=== PATIENT | male | born 1945 | race Caucasian/White ===

== ENCOUNTER 2017-11-10 19:12 | Emergency (ER) | payer MEDICARE, SELFPAY ==
[2017-11-10 19:12] VITALS: BP 167/121; PULSE 130; RESP 18; TEMP 36.3; O2SAT 95; BMI 25.9
[2017-11-10 20:48] LABS: Absolute Lymphocyte Count 0.77 X10^3/ul (0.83-4.51); Absolute Neutrophil Count 13.7 X10^3/uL (2.0-7.7); Basophil# 0.03 X10^3/uL; Basophil% 0.2 % (0-1); Hematocrit 49.1 % (40-54); Hemoglobin 16.8 g/dl (13.0-16.5); Lymphocyte # 0.77 X10^3/ul (4.0); Lymphocyte % 4.9 % (19-41); Mean Corp Hgb Conc 34.2 g/gl (32-36); Mean Corpuscular Hgb 30.3 pg (27.0-32.0); Mean Corpuscular Volume 88.5 fL (80-94); Mean Platelet Vol. 10.7 fl (6.2-12.0); Monocyte# 1.14 X10^3/uL; Monocyte% 7.3 % (0-10); Neutrophil # 13.67 X10^3/uL (2.7-7.7); Neutrophil % 87.4 % (47-70); POSITIVE COUNT NO; POSITIVE DIFFERENTIAL NO; POSITIVE MORPHOLOGY NO; Platelet Count 291 K/mm3 (150-450); RBC Distribution Width CV 14.5 % (11.6-14.6); RBC Distribution Width SD 46.2 fl (35.1-43.9); Red Blood Count 5.55 M/mm3 (4.6-6.2); White Blood Count 15.6 K/mm3 (4.4-11.0)
[2017-11-10 20:54] LABS: Anion Gap 11 (5-15); BUN 22 mg/dL (7-18); BUN/Creat Ratio 22.6 RATIO (10-20); Calcium,Total 8.7 mg/dL (8.5-10.1); Chloride 108 mmol/L (98-107); Creatinine, Serum 0.97 mg/dL (0.70-1.30); EST Glomerular Filtration Rate 81 mL/min (>60); Est Glom Filt Rate - Afr Amer 98 mL/min (>60); Estimated Creatinine Clearance 54.73 ml/min; Glucose 136 mg/dL (74-106); Potassium 3.2 mmol/L (3.5-5.1); Sodium Level 142 mmol/L (136-145)
[2017-11-10 20:55] LABS: Bacteria 0 SEEN /hpf (None Seen); Mucous, Urine 0 SEEN /hpf (<or=2+)
[2017-11-10 20:56] LABS: Color, Urine Red (Yellow); Glucose, Dipstick Normal (Normal); Ketone-Dipstick 5 mg/dl (Negative); Leukocyte Esterase-Dipstick Negative /ul (Negative); Nitrite-Dipstick Negative (Negative); Occult Blood-Urine 250 /ul (Negative); Protein-Dipstick 500 mg/dl (Negative); Urine Bilirubin Dipstick Negative (Negative); Urine Clarity Turbid (Clear); Urine Urobilinogen Normal (Normal)
[2017-11-10 21:08] LABS: Red Blood Cells-Urine > 100 SEEN /hpf (0-5); White Blood Cells 0-5 SEEN /hpf (0-5)
--- NOTE | 2017-11-10 21:19 | NURSING ---
IRRIGATED WITH 1,000 FLOWED NICELY, DID NOT SEE ANY LARGE CLOTS.
[2017-11-10] MEDS: 0.9% Normal Saline 1,000 ML 999 ML IV (21:23)
[2017-11-10 21:31] VITALS: BP 152/104; PULSE 114; RESP 20; O2SAT 94
--- NOTE | 2017-11-10 22:21 | ED.VISSUMM ---
- ER Visit Summary Date of Service: 11/10/17 Chief Complaint: Urinary retention History of Present Illness: The patient is a 71 M who states that she he last urinated yesterday. He states that he feels like he needs to urinate very badly. He notes suprapubic pain. This is happened to him once before after he had a Blackwood catheter during bilateral hernia surgery. He followed up with the urologist out of town. He has not had any problems since then. He denies any recent [id number] medications or any antihistamines. He denies any blood in the urine recently. Physical Examination: Afebrile vital signs are stable Gen: Well-nourished well-developed patient appears very uncomfortable Head: Normocephalic atraumatic Eyes: Perrl EOMI ENT: TMs clear no rhinorrhea moist mucous membranes Neck: Supple no lymphadenopathy no JVD nontender CVS: Regular rate rhythm no murmurs normal S1-S2 Respiratory: No distress clear to auscultation bilaterally chest nontender Abdomen: Soft she has a distended bladder that is tender to palpation nondistended normal bowel sounds no masses Back: Nontender Extremity: Nontender no edema Skin: Normal color no rash Neuro: alert orientated ?3 CN II-XII intact normal strength sensation reflexes gait cerebellar Psych: Normal affect normal mood Test Results: White count is normal. Normal creatinine. Urinalysis was greater than 100 red blood cells without overt signs of infection. Emergency Department Course and Treatment: Several times and a Blackwood catheter were made by nursing and eventually 22 three-way catheter was placed. Dark urine with clots was removed over 1500 cc. The bladder was irrigated and has remained a pink tinge. There is been no further clots. Plan is to transition to a leg bag. I will place him on Bactrim. Urine culture ordered. I have asked that he follow-up with urology as soon as possible. He was given return instructions. Impression: 1. Acute urinary retention This note was generated with mana.bo dictation software. It may contain incorrect words, spelling, and punctuation that were not noted in review of the chart prior to signing ED Disposition - Plan for ED Patient: Disposition: Home or Assisted Living Chief Complaint: Complaint Instructions: ED Retention Urinary Male Prescriptions: Smz/Tmp Ds [Bactrim Ds] 1 tab PO BID #20 tab Referrals: Mervin Leggett MD [STAFF PHYSICIAN] - As soon as possible (call on Sunday to arrange follow up appointment)
--- NOTE | 2017-11-10 22:26 | ED.DCSUM_ITS ---
- ER Visit Summary Date of Service: 11/10/17 Chief Complaint: Urinary retention History of Present Illness: The patient is a 71 M who states that she he last urinated yesterday. He states that he feels like he needs to urinate very badly. He notes suprapubic pain. This is happened to him once before after he had a Blackwood catheter during bilateral hernia surgery. He followed up with the urologist out of town. He has not had any problems since then. He denies any recent jlty-hxl-gpdfovy medications or any antihistamines. He denies any blood in the urine recently. Physical Examination: Afebrile vital signs are stable Gen: Well-nourished well-developed patient appears very uncomfortable Head: Normocephalic atraumatic Eyes: Perrl EOMI ENT: TMs clear no rhinorrhea moist mucous membranes Neck: Supple no lymphadenopathy no JVD nontender CVS: Regular rate rhythm no murmurs normal S1-S2 Respiratory: No distress clear to auscultation bilaterally chest nontender Abdomen: Soft she has a distended bladder that is tender to palpation nondistended normal bowel sounds no masses Back: Nontender Extremity: Nontender no edema Skin: Normal color no rash Neuro: alert orientated ?3 CN II-XII intact normal strength sensation reflexes gait cerebellar Psych: Normal affect normal mood Test Results: White count is normal. Normal creatinine. Urinalysis was greater than 100 red blood cells without overt signs of infection. Emergency Department Course and Treatment: Several times and a Blackwood catheter were made by nursing and eventually 22 three-way catheter was placed. Dark urine with clots was removed over 1500 cc. The bladder was irrigated and has remained a pink tinge. There is been no further clots. Plan is to transition to a leg bag. I will place him on Bactrim. Urine culture ordered. I have asked that he follow-up with urology as soon as possible. He was given return instructions. Impression: 1. Acute urinary retention This note was generated with [employer] dictation software. It may contain incorrect words, spelling, and punctuation that were not noted in review of the chart prior to signing ED Disposition - Plan for ED Patient: Disposition: Home or Assisted Living Chief Complaint: Complaint Instructions: ED Retention Urinary Male Prescriptions: Smz/Tmp Ds [Bactrim Ds] 1 tab PO BID #20 tab Referrals: Mervin Leggett MD [STAFF PHYSICIAN] - As soon as possible (call on Sunday to arrange follow up appointment)
[2017-11-10] MEDS: Smz/Tmp Ds Tablet 1 TABLET PO (22:35)
[2017-11-10 22:37] VITALS: PULSE 144; RESP 18; O2SAT 93
== END 2017-11-10 22:51 | disposition home or self-care (01) ==
PROVIDERS: Emergency Provider Emergency Medicine; Family Provider Family Medicine; PCP Family Medicine
DX: R33.9 Retention of urine, unspecified (principal); Z87.891 Personal history of nicotine dependence
CPT/HCPCS: 51702; 80048; 81001; 85025; 87086; 96360; 99284; J7030; A4216

== ENCOUNTER → 2019-06-23 13:35 | Outpatient (CLI) | payer MEDICARE, SELFPAY ==
[2019-06-23 16:45] LABS: PSA,Total - Annual Screen 5.47 ng/mL (0.00-4.00)
== END ==
PROVIDERS: Family Provider Family Medicine; PCP Family Medicine; Referring Provider Urology; Visit Provider Urology
DX: Z12.5 Encounter for screening for malignant neoplasm of prostate (principal)
CPT/HCPCS: 36415; 84153; G0103

== ENCOUNTER 2022-12-18 19:53 | Emergency (ER) | payer MEDICARE, SELFPAY ==
[2022-12-18 19:54] VITALS: BP 147/99; PULSE 109; RESP 20; O2SAT 95
[2022-12-18 19:55] VITALS: TEMP 36.9; BMI 21.1
--- NOTE | 2022-12-18 20:23 | ED.RN ---
Family at bedside.
[2022-12-18 21:02] LABS: Absolute Lymphocyte Count 1.95 X10^3/uL (0.83-4.51); Basophil# 0.12 X10^3/uL; Basophil% 1.4 % (0-1); Eosinophil# 0.55 X10^3/uL; Eosinophils% 6.4 % (0-5); Hematocrit 50.2 % (40-54); Hemoglobin 16.2 g/dL (13.0-16.5); Lymphocyte # 1.95 X10^3/ul (0.83-4.51); Lymphocyte % 22.8 % (19-41); Mean Corp Hgb Conc 32.3 g/dL (32-36); Mean Corpuscular Hgb 29.7 pg (27.0-32.0); Mean Corpuscular Volume 91.9 fL (80-94); Monocyte% 10.5 % (0-10); NRBC Flagged by Analyzer 0 % (0-5); Neutrophil % 58.4 % (47-70); Platelet Count 320 K/mm3 (150-450); RBC Distribution Width CV 13.4 % (11.6-14.6); RBC Distribution Width SD 45.4 fl (35.1-43.9); Red Blood Count 5.46 M/mm3 (4.6-6.2); White Blood Count 8.6 K/mm3 (4.4-11.0)
--- NOTE | 2022-12-18 21:06 | ED.RN ---
This nurse was about to start an IV. Patient stated to this nurse I want to . I want to go home.
[2022-12-18 21:18] LABS: ALB/GLOB Ratio 0.9 RATIO (0.9-2.4); AST(SGOT) 14 U/L (15-37); Alanine Aminotransfer ALT/SGPT 27 U/L (16-61); Albumin, Serum 3.1 g/dL (3.2-5.0); Alkaline Phosphatase 210 U/L (45-117); Anion Gap 6 (5-15); BUN 21 mg/dL (7-18); Calcium,Total 8.8 mg/dL (8.5-10.1); Chloride 107 mmol/L (98-107); Creatinine, Serum 0.72 mg/dL (0.70-1.30); EST Glomerular Filtration Rate 112 mL/min (>60); Est Glom Filt Rate - Afr Amer 135 mL/min (>60); Estimated Creatinine Clearance 51.91 ml/min; Globulin 3.6 g/dL (2.2-4.2); Glucose 107 mg/dL (74-106); Potassium 3.6 mmol/L (3.5-5.1); Protein, Total 6.7 g/dL (6.4-8.2); Sodium Level 141 mmol/L (136-145)
--- NOTE | 2022-12-18 22:20 | CM.ED ---
Social Work Note SW contacted patient's daughter, Lay, and introduced herself and role as [facility] Produce Laborer. Patient's daughter reports patient does not have a living will but she is his HCPOA. Patient's daughter explained she will have to find the HCPOA documents to bring in. Patient's daughter explained he is otherwise and has one other daughter that is not involved with their family. Inez West MSW, JOSE GUADALUPE
--- NOTE | 2022-12-18 22:43 | CM.ED ---
Social Work Psychiatric Assessment Reason for Consult: mental health Informants: Patient?s daughter Lay Chief Complaint: Patient was brought in from [facility] due to being combative towards staff. Demographics: Patient is a single, 76 year old male currently residing at [facility]. Patient?s daughter reports the patient has lived with her for 20 years. Patient recently had two surgeries at [facility] and patient?s daughter reports he hasn?t been himself since. Patient went to a [facility] after d/c from [place] until his insurance ran out. Patient lived with his daughter again, then went to [facility] for medical needs and was placed in [facility] from there. Mental Health Treatment/ History: Patient daughter reports no known mental health diagnosis but has dementia. Patient?s daughter reports the patient is more forgetful at night, not combative. ??? Supports/ Resources: Patient is supported by his daughter, Lay. ?? Triggers/ stressors: Patient has had several moves and hospital stays recently. ? Legal Issues: None reported Coping Skills: unable to gather this information Abuse History: ? Unable to gather this information Risk to Self/Others: ? Suicidal: Patient said ?I want to ? to his RN at [facility] as well as patient?s daughter. Patient?s daughter reports this is new behavior. ? Homicidal: none ? Violence: Patient was violent towards staff at [facility]. ? Mental Status Exam: ? Orientation: Patient orientated to himself and aware he is at a hospital. Patient unable to state the year or current president. ? Memory: impaired, dementia diagnosis ? Appearance:? Patient lying in hospital bed and states ?I don?t want to talk? when SW attempted to engage him in assessment. ? Mood/ affect: flat affect, avoiding eye contact ? Communication Pattern: Patient did not engage in conversation well with SW. RN reports patient was talking with his daughter with no issues. ? Thought Process: unable to evaluate ? General Intellectual Functioning: unable to evaluate Judgement: impaired Insight: impaired? Assessment: VENECIA met with MD Hernandez, reviewed symptoms and current concerns. MD reports patient was nonverbal during their interaction and family is at bed side. SW met with patient and introduced herself and role as [facility] Steam Engineer. Patient identified his name and his location being at a hospital but was unable to state the year or current president. SW attempted to engage patient in conversation, patient states ?I don?t want to talk? and says nothing else to SW. SW explained she will contact patient?s daughter. SW contacted patient?s daughter and introduced herself and role as [facility] SW. Patient?s daughter left to take her children home and plans to return after she takes her boyfriend home. SW gathered information for patient?s assessment. Patient?s daughter explained timeline of SNF stays and reports the combative behavior is new. Patient?s daughter explained he does have a history of dementia is more confused at night at [place]. Patient?s daughter feels the patient hasn?t been himself since his most recent surgeries, calling patient using his bedside commode as a walker. Patient?s daughter reports she went to the [facility] last night due to staff reporting the patient was agitated. Patient?s daughter explained he was tested for UTI at that time and it came back negative. Patient?s daughter reports the patient did state ?I want to ? while she was present in the hospital. VENECIA explained the MD was still evaluating patient, however, if patient is medically cleared VENECIA is recommending [facility] placement. Patient?s daughter reports she will be back into ED as soon as she can. Hand off to [facility], faxed face sheet per her request Plan: TBD- if patient is medically cleared VENECIA recommending [facility] placement Inez West PEGGER, JOSE GUADALUPE
--- NOTE | 2022-12-18 22:56 | CT_ITS ---
EXAM: CT HEAD WITHOUT INTRAVENOUS CONTRAST CLINICAL INDICATION: None provided. Change in mental status TECHNIQUE: Multiple axial images were obtained of the head without intravenous contrast. This CT exam was performed using one or more of the following dose reduction techniques: automated exposure control, adjustment of the mA and/or kV according to patient size, and/or use of iterative reconstruction technique. COMPARISON: No relevant prior studies available. FINDINGS: BRAIN AND EXTRA-AXIAL SPACES: There is enlargement of ventricular system and cortical sulci. There is hypoattenuation in the periventricular white matter. No intra- or extra-axial hemorrhage. No evidence of acute infarct. No intracranial mass or mass effect. There is preservation of the jiang/white matter interface. Posterior fossa structures are unremarkable. Basal cisterns are patent. BONES/JOINTS: Unremarkable. No discrete lytic or blastic abnormalities. SINUSES: Unremarkable as visualized. Clear. MASTOID AIR CELLS: Unremarkable. Clear. ORBITS: Visualized globes, extraocular muscles, optic nerves and retrobulbar fat appear unremarkable. CT/Brain/Head without Contrast IMPRESSION: 1. No acute intracranial abnormality. 2. Underlying senescent change with small vessel ischemia. Electronically Signed: Justo Martinez MD at 23:38 EDT ,
--- NOTE | 2022-12-18 22:59 | EX.ED.VIS.PS ---
HPI <Dr. Avtar Hernandez MD - Last Filed: 12/18/22 23:19> HPI - Psych History of Present Illness Chief Complaint: Mental Health Detail of Chief Complaint: Sent from the nursing facility because of combative behavior Informant: family and other (Nursing facility, the [facility]) Limited: dementia and uncooperative (Patient states he refuses to talk to me.) Onset/Context/Timing Onset: Today Context: Sudden Onset Conflict: - (Unable to determine) Timing: Intermittent Current Severity: Patiently is lying calmly in bed and Juan speak to me. Maximum Severity: Severe (Per nursing staff at the [facility]) Associated Symptoms Associated Symptoms - Psych: Positive for - (Unable to determine on my exam. He voiced to his daughter he wants to ) Specific plan (suicidal thought): Unknown Narrative Narrative: Patient is a 76-year-old male who was at a another nursing facility. Because insurance ran out he was then hospitalized and then transferred to the [facility]. History is limited to what I was told by the [facility] director of social services who spoke with daughter. Daughter was not in the room when I initially saw the patient. He does have history of dementia. Per group home documents he has history of unspecified dementia without behavioral disturbance until this evening. Prior similar symptoms: No Recent Illness/Hospitalization: Yes PFSH <Dr. Avtar Hernandez MD - Last Filed: 12/18/22 23:19> [facility] Medical History Dementia GERD (gastroesophageal reflux disease) Low back pain Osteoarthritis Home Medications sulfamethoxazole 800 mg-trimethoprim 160 mg tablet 1 tab PO BID #20 tabs 11/10/17 [Rx Last Taken Unknown] Allergy/AdvReac Type Severity Reaction Status Date / Time No Known Allergies Allergy Verified 12/18/22 23:02 Family History unable to obtain Surgical History unable to obtain Social History (Updated 12/18/22 @ 23:[address] Avtar Hernandez MD) household members: none housing: group home Smoking Status: Former smoker ROS <Dr. Avtar Hernandez MD - Last Filed: 12/18/22 23:19> ROS ED Review of Systems ROS Unobtainable: due to mental condition and due to mental status EXAM <Dr. Avtar Hernandez MD - Last Filed: 12/18/22 23:19> Physical Exam Const Vital Signs: 12/18/22 19:55 12/18/22 19:54 12/18/22 23:01 Temperature 98.5 F Temperature Source Temporal Pulse Rate 109 H 93 Respiratory Rate 20 H 18 Blood Pressure 147/99 H 164/109 H Blood Pressure Mean 115 127 Pulse Ox 95 97 Oxygen Delivery Method Room Air Room Air Positive well nourished and well developed General Appearance ED: well developed and NAD; Negative for pallor HEENT Reports TM's clear and moist mucous membranes HEENT Narrative: Uvula midline. No deviation tongue with protrusion. normocephalic and atraumatic Tympanic Membrane ED: Yes TM's clear Eyes PERRL and EOMs intact bilaterally General Eye ED: Negative for pale conjunctiva or scleral icterus Neck no lymphadenopathy, supple and no JVD Resp normal respiratory effort and clear to auscultation bilaterally Cardio S1 normal heart sound, S2 normal heart sound and no murmurs Rate: regular rate Rhythm: regular rhythm GI non-tender, non-distended and no masses Auscultation: hypoactive bowel sounds Palpation: soft Extremity normal to inspection General Extremety ED: Negative for tenderness Neuro Neuro Narrative: Patient is not cooperative. He does move his extremities to tactile stimulus. There is no clonus or Babinski sign noted. Psych Psych Narrative: Patient refuses to speak with me or the [facility] director of social services. Appearance: grossly normal Attitude: calm Activity / Motor Behavior: psychomotor slowing; Negative for appropriate eye contact Speech: normal speech Mood & Affect: depressed and flat affect Thought Process: other Voiced suicidal thoughts to daughter otherwise unable to determine thought process or content. Memory / Cognition: other History of depression and dementia unable to determine Skin General Skin Exam: Negative for jaundice or pallor Lesions: no lesions Rashes: no rashes <Dr. Dio Vazquez MD - Last Filed: 12/19/22 01:19> Physical Exam Const Vital Signs: 12/18/22 19:55 12/18/22 19:54 12/18/22 23:01 Temperature 98.5 F Temperature Source Temporal Pulse Rate 109 H 93 Respiratory Rate 20 H 18 Blood Pressure 147/99 H 164/109 H Blood Pressure Mean 115 127 Pulse Ox 95 97 Oxygen Delivery Method Room Air Room Air MDM <Dr. Avtar Hernandez MD - Last Filed: 12/18/22 23:19> MDM MDM Narrative Medical decision making narrative: Case management did see patient. They recommended hospitalization to [facility] psych. In light of this in addition to the initial labs that were ordered which included CBC, BMP and UA a urine tox and alcohol was ordered as well as a CAT scan since this is new behavior changes. No history available for review. Lab Data Attestation: I reviewed the patient's lab results. Lab results narrative: CBC is unremarkable. Comprehensive metabolic panel is remarkable for an elevated BUN to creatinine ratio which is not significant. Alkaline phosphatase slightly evaded and is nonspecific. Labs: Laboratory Results - last 24 hr 12/18/22 12/18/22 12/18/22 20:54 20:54 23:00 WBC 8.6 RBC 5.46 Hgb 16.2 Hct 50.2 MCV 91.9 MCH 29.7 MCHC 32.3 RDW Std Deviation 45.4 H RDW Coeff of Evangelist 13.4 Plt Count 320 MPV 10.0 Immature Gran % (Auto) 0.500 Neut % (Auto) 58.4 Lymph % (Auto) 22.8 Irwin % (Auto) 10.5 H Eos % (Auto) 6.4 H Baso % (Auto) 1.4 H Absolute Neuts (auto) 5.0 Absolute Lymphs (auto) 1.95 Nucleated RBC % 0 Sodium 141 Potassium 3.6 Chloride 107 Carbon Dioxide 28.0 Anion Gap 6 BUN 21 H Creatinine 0.72 Estim Creat Clear Calc 51.91 Est GFR (MDRD) Af Amer 135 Est GFR (MDRD) Non-Af 112 BUN/Creatinine Ratio 29.0 H Glucose 107 H Calcium 8.8 Total Bilirubin 0.40 AST 14 L ALT 27 Alkaline Phosphatase 210 H Total Protein 6.7 Albumin 3.1 L Globulin 3.6 Albumin/Globulin Ratio 0.9 Urine Color Yellow Urine Clarity Clear Urine pH 6.5 Ur Specific Weikert 1.010 Urine Protein Negative Urine Glucose (UA) Normal Urine Ketones Negative Urine Occult Blood Negative Urine Nitrite Negative Urine Bilirubin Negative Urine Urobilinogen Normal Ur Leukocyte Esterase Negative Urine RBC 0 SEEN Urine WBC 0 SEEN Ur Squamous Epith Cells 0 SEEN Urine Bacteria 0 SEEN Urine Mucus 0 SEEN Urine Opiates Screen Urine Methadone Screen Ur Barbiturates Screen Ur Phencyclidine Scrn Ur Amphetamines Screen MDMA (Ecstasy) Screen U Benzodiazepines Scrn Urine Cocaine Screen U Cannabinoids Screen Ur Drug Screen Comment Ethyl Alcohol 12/18/22 12/19/22 23:00 00:15 WBC RBC Hgb Hct MCV MCH MCHC RDW Std Deviation RDW Coeff of Evangelist Plt Count MPV Immature Gran % (Auto) Neut % (Auto) Lymph % (Auto) Irwin % (Auto) Eos % (Auto) Baso % (Auto) Absolute Neuts (auto) Absolute Lymphs (auto) Nucleated RBC % Sodium Potassium Chloride Carbon Dioxide Anion Gap BUN Creatinine Estim Creat Clear Calc Est GFR (MDRD) Af Amer Est GFR (MDRD) Non-Af BUN/Creatinine Ratio Glucose Calcium Total Bilirubin AST ALT Alkaline Phosphatase Total Protein Albumin Globulin Albumin/Globulin Ratio Urine Color Urine Clarity Urine pH Ur Specific Weikert Urine Protein Urine Glucose (UA) Urine Ketones Urine Occult Blood Urine Nitrite Urine Bilirubin Urine Urobilinogen Ur Leukocyte Esterase Urine RBC Urine WBC Ur Squamous Epith Cells Urine Bacteria Urine Mucus Urine Opiates Screen NEGATIVE Urine Methadone Screen NEGATIVE Ur Barbiturates Screen NEGATIVE Ur Phencyclidine Scrn NEGATIVE Ur Amphetamines Screen NEGATIVE MDMA (Ecstasy) Screen NEGATIVE U Benzodiazepines Scrn NEGATIVE Urine Cocaine Screen NEGATIVE U Cannabinoids Screen NEGATIVE Ur Drug Screen Comment Ethyl Alcohol < 3.0 Radiography Diagnostic Testing: Clinical Impression(s) from Imaging Studies Brain CT 12/18/22 22:56 IMPRESSION: 1. No acute intracranial abnormality. 2. Underlying senescent change with small vessel ischemia. Electronically Signed: Justo Martinez MD at 23:38 EDT , Treatment and Re-Evaluation Narrative: Care was transferred to the night physician Dr. Zander Pérez. Once patient is medically cleared crisis will need to be contacted. <Dr. Dio Vazquez MD - Last Filed: 12/19/22 01:19> [facility] Lab Data Labs: Laboratory Results - last 24 hr 12/18/22 12/18/22 12/18/22 20:54 20:54 23:00 WBC 8.6 RBC 5.46 Hgb 16.2 Hct 50.2 MCV 91.9 MCH 29.7 MCHC 32.3 RDW Std Deviation 45.4 H RDW Coeff of Evangelist 13.4 Plt Count 320 MPV 10.0 Immature Gran % (Auto) 0.500 Neut % (Auto) 58.4 Lymph % (Auto) 22.8 Irwin % (Auto) 10.5 H Eos % (Auto) 6.4 H Baso % (Auto) 1.4 H Absolute Neuts (auto) 5.0 Absolute Lymphs (auto) 1.95 Nucleated RBC % 0 Sodium 141 Potassium 3.6 Chloride 107 Carbon Dioxide 28.0 Anion Gap 6 BUN 21 H Creatinine 0.72 Estim Creat Clear Calc 51.91 Est GFR (MDRD) Af Amer 135 Est GFR (MDRD) Non-Af 112 BUN/Creatinine Ratio 29.0 H Glucose 107 H Calcium 8.8 Total Bilirubin 0.40 AST 14 L ALT 27 Alkaline Phosphatase 210 H Total Protein 6.7 Albumin 3.1 L Globulin 3.6 Albumin/Globulin Ratio 0.9 Urine Color Yellow Urine Clarity Clear Urine pH 6.5 Ur Specific Weikert 1.010 Urine Protein Negative Urine Glucose (UA) Normal Urine Ketones Negative Urine Occult Blood Negative Urine Nitrite Negative Urine Bilirubin Negative Urine Urobilinogen Normal Ur Leukocyte Esterase Negative Urine RBC 0 SEEN Urine WBC 0 SEEN Ur Squamous Epith Cells 0 SEEN Urine Bacteria 0 SEEN Urine Mucus 0 SEEN Urine Opiates Screen Urine Methadone Screen Ur Barbiturates Screen Ur Phencyclidine Scrn Ur Amphetamines Screen MDMA (Ecstasy) Screen U Benzodiazepines Scrn Urine Cocaine Screen U Cannabinoids Screen Ur Drug Screen Comment Ethyl Alcohol 12/18/22 12/19/22 23:00 00:15 WBC RBC Hgb Hct MCV MCH MCHC RDW Std Deviation RDW Coeff of Evangelist Plt Count MPV Immature Gran % (Auto) Neut % (Auto) Lymph % (Auto) Irwin % (Auto) Eos % (Auto) Baso % (Auto) Absolute Neuts (auto) Absolute Lymphs (auto) Nucleated RBC % Sodium Potassium Chloride Carbon Dioxide Anion Gap BUN Creatinine Estim Creat Clear Calc Est GFR (MDRD) Af Amer Est GFR (MDRD) Non-Af BUN/Creatinine Ratio Glucose Calcium Total Bilirubin AST ALT Alkaline Phosphatase Total Protein Albumin Globulin Albumin/Globulin Ratio Urine Color Urine Clarity Urine pH Ur Specific Weikert Urine Protein Urine Glucose (UA) Urine Ketones Urine Occult Blood Urine Nitrite Urine Bilirubin Urine Urobilinogen Ur Leukocyte Esterase Urine RBC Urine WBC Ur Squamous Epith Cells Urine Bacteria Urine Mucus Urine Opiates Screen NEGATIVE Urine Methadone Screen NEGATIVE Ur Barbiturates Screen NEGATIVE Ur Phencyclidine Scrn NEGATIVE Ur Amphetamines Screen NEGATIVE MDMA (Ecstasy) Screen NEGATIVE U Benzodiazepines Scrn NEGATIVE Urine Cocaine Screen NEGATIVE U Cannabinoids Screen NEGATIVE Ur Drug Screen Comment Ethyl Alcohol < 3.0 Radiography Diagnostic Testing: Clinical Impression(s) from Imaging Studies Brain CT 12/18/22 22:56 IMPRESSION: 1. No acute intracranial abnormality. 2. Underlying senescent change with small vessel ischemia. Electronically Signed: Justo Martinez MD at 23:38 EDT , Management Discussion w/another healthcare provider: Behavioral health Treatment and Re-Evaluation Narrative: Care was transferred to the night physician Dr. Zander Pérez. Once patient is medically cleared crisis will need to be contacted. Patient checked out to me. I reviewed all of the test including the imaging of the head, CT images appear unremarkable and radiologist interpreted it as chronic changes nothing acute, I agree with this interpretation. No signs of any infection currently. Patient is medically cleared and we will have crisis evaluate for probable placement. Discharge Plan Triage Chief Complaint: Mental Health ED Provider: Avtar Hernandez Dx/Rx/DC Orders Clinical Impression: Dementia with behavioral disturbance Prescriptions: No Action sulfamethoxazole-trimethoprim 1 TABLET tablet 1 tab PO BID Qty: 20 0RF Primary Care Provider: Ander Buchanan Referrals: Ander Buchanan MD [Primary Care Provider] - Disposition Disposition: Psychiatric Hospital or Unit
[2022-12-18 23:01] VITALS: BP 164/109; PULSE 93; RESP 18; O2SAT 97
[2022-12-18 23:02] LABS: Bacteria 0 SEEN /hpf (None Seen); Mucous, Urine 0 SEEN /hpf (<or=2+); Red Blood Cells-Urine 0 SEEN /hpf (0-5); Squamous Epithelial Cells - UA 0 SEEN /hpf (0-5); White Blood Cells 0 SEEN /hpf (0-5)
[2022-12-18 23:24] LABS: Color, Urine Yellow (Yellow); Glucose, Dipstick Normal (Normal); Ketone-Dipstick Negative (Negative); Leukocyte Esterase-Dipstick Negative /ul (Negative); Nitrite-Dipstick Negative (Negative); Occult Blood-Urine Negative /ul (Negative); Protein-Dipstick Negative (Negative); Urine Bilirubin Dipstick Negative (Negative); Urine Clarity Clear (Clear); Urine Urobilinogen Normal (Normal); Urine pH 6.5 (5.0 - 8.0)
[2022-12-18 23:25] LABS: Amphetamine Urine VISTA NEGATIVE (<1000 ng/mL); Barbiturate Urine VISTA NEGATIVE (< 200 ng/mL); Benzodiazepine Urine VISTA NEGATIVE (< 200 ng/mL); Cocaine Urine VISTA NEGATIVE (< 300 ng/mL); Ecstacy Urine VISTA NEGATIVE (< 500 ng/mL); Methadone Urine VISTA NEGATIVE (< 300 ng/mL); PCP Urine VISTA NEGATIVE (< 25 ng/mL); THC Urine VISTA NEGATIVE (< 50 ng/mL); Vista UDS pH Range 6
[2022-12-19 00:42] LABS: Alcohol, Blood (Medical)-Serum < 3.0 mg/dL
[2022-12-19 01:19] VITALS: PULSE 76; RESP 16; O2SAT 94
[2022-12-19 03:02] VITALS: BP 136/86; PULSE 76; RESP 16; O2SAT 98
== END 2022-12-19 03:06 | disposition skilled nursing facility (03) ==
PROVIDERS: Emergency Provider Emergency Medicine; PCP Family Medicine; Visit Provider Emergency Medicine
DX: F03.918 Unspecified dementia, unspecified severity, with other behavioral disturbance (principal); Z87.891 Personal history of nicotine dependence
CPT/HCPCS: 36415; 70450; 80053; 80307; 81001; 82077; 85025; 87811; 99285; P9612; A4216

== ENCOUNTER 2022-12-31 14:52 | Emergency (ER) | payer MEDICARE, SELFPAY ==
[2022-12-31 14:55] VITALS: BP 123/83; PULSE 102; RESP 18; TEMP 36.9; O2SAT 94; BMI 25.0
--- NOTE | 2022-12-31 15:22 | CT_ITS ---
STUDY: CT BRAIN WITHOUT CONTRAST REASON FOR EXAM: Male, 77 years old. Change in Mental Status RADIATION DOSAGE (If Supplied By Facility): CTDIvol = ( 44.99 ) mGy, DLP = ( 897.35 ) mGycm TECHNIQUE: Transaxial CT imaging of the brain was performed without administration of intravenous contrast material. Individualized dose optimization techniques were used for this CT. COMPARISON: 12/18/2022 6 FINDINGS: Normal soft tissue structures. Normal calvarium. There is mild cerebral atrophy with widening of the extra-axial spaces and ventricular dilatation. There are areas of decreased attenuation within the white matter tracts of the supratentorial brain, consistent with microvascular disease changes. There are bilateral lacunar infarcts of the basal ganglia and thalami. Normal brainstem. There is mild cerebellar atrophy. There is no intracranial hemorrhage. There are no findings of an acute ischemic infarction. Normal visualized paranasal sinuses. CT/Brain/Head without Contrast IMPRESSION: Chronic involutional changes of the brain. No change. No acute abnormality. Electronically Signed: Eugene Cottrell MD at 16:26 EDT ,
--- NOTE | 2022-12-31 15:23 | EX.ED.DYSGE1 ---
HPI History of Present Illness Chief Complaint: Mental Status Change Narrative Narrative: 77-year-old male presenting with agitation and aggression towards staff at the [facility] at the [facility]. Patient's daughter states that she was called about 330 this morning to come and see him because he was agitated and combative in the bed hitting staff and cussing at them. She came to his bedside and was able to eventually get him calm down. She left about 10 this morning and after she left she was called again later in the day because she was agitated again. A pound the patient trying to crawl towards the Courty[facility] door. They try to get him back into the bed and he was biting and hitting people and cussing them out. Daughter was called back again and the patient was transported here. Patient's daughter states he did have a recent admission to [facility] and they reported that there was nothing wrong with him he has had dementia. He is not on any medication for dementia however. Patient's daughter states that he initially went into the mcc because he had a abdominal surgery at [place] and afterwards ripped his jameel out and had to go back to the OR. She states that after the second I am getting anesthesia the patient just had not acted right anymore. He cannot walk unassisted. [facility] Medical History Dementia GERD (gastroesophageal reflux disease) Low back pain Osteoarthritis Allergy/AdvReac Type Severity Reaction Status Date / Time No Known Allergies Allergy Verified 12/31/22 15:10 Social History household members: none housing: [facility]cc Smoking Status: Former smoker ROS ROS ED Review of Systems ROS Unobtainable: due to mental condition EXAM Physical Exam Const Vital Signs: 12/31/22 14:55 12/31/22 16:54 12/31/22 18:00 Temperature 98.5 F Temperature Source Temporal Pulse Rate 102 H 84 80 Respiratory Rate 18 16 18 Blood Pressure 123/83 H 111/76 118/74 Blood Pressure Mean 96 87 88 Pulse Ox 94 95 96 Oxygen Delivery Method Room Air Room Air Room Air 12/31/22 20:13 Temperature Temperature Source Pulse Rate 75 Respiratory Rate 16 Blood Pressure 130/89 H Blood Pressure Mean Pulse Ox 97 Oxygen Delivery Method Positive well nourished General Appearance ED: NAD; Negative for pallor HEENT Reports moist mucous membranes Chest Wall inspection of chest normal Resp normal respiratory effort and clear to auscultation bilaterally Auscultation: Negative for rales, rhonchi or wheezes Cardio regular rate and regular rhythm Neuro CN's II-XII intact bilaterally and no sensory deficits noted Sensorium / Orientation: alert Psych Attitude: agitated Skin no rashes or lesions noted and no wounds General Skin Exam: Negative for jaundice or pallor MDM MDM MDM Narrative Medical decision making narrative: Patient was sent in for evaluation because he is agitated with staff. Lab work was obtained and is essentially unremarkable. CT of the brain is normal. EKG on my interpretation sinus rhythm with a ventricular rate of 88 bpm without sign of ischemic change. Chest x-ray on my interpretation shows no acute cardiopulmonary process. Radiologist interprets this and agrees. Urinalysis negative. Drug screen negative. EtOH negative. Patient medically clear for crisis to evaluate. Patient evaluated by crisis and has been calm here. After discussing this with him and his daughter as well as crisis bill hiker the patient appears to be agitated with the way that they handle him at his [facility]. He reports that there too rough with him and they sent him down too hard and it makes his back hurt so he tries not to let them move and then they get into altercations. After discussing this with crisis and the patient's daughter they do want to go back to the mcc. Crisis was able to give him some resources as well. Return precautions discussed. Impression: 1. Agitation 2. History of dementia Lab Data Attestation: I reviewed the patient's lab results. Labs: Laboratory Results - last 24 hr 12/31/22 12/31/22 12/31/22 15:22 16:13 16:13 WBC 8.9 RBC 5.13 Hgb 15.3 Hct 47.9 MCV 93.4 MCH 29.8 MCHC 31.9 L RDW Std Deviation 45.8 H RDW Coeff of Evangelist 13.2 Plt Count 302 MPV 10.3 Immature Gran % (Auto) 0.300 Neut % (Auto) 66.5 Lymph % (Auto) 17.2 L [place] % (Auto) 10.2 H Eos % (Auto) 4.6 Baso % (Auto) 1.2 H Absolute Neuts (auto) 5.9 Absolute Lymphs (auto) 1.52 Nucleated RBC % 0 Sodium 141 Potassium 4.8 Chloride 106 Carbon Dioxide 29.0 Anion Gap 6 BUN 26 H Creatinine 1.03 Estim Creat Clear Calc 43.15 Est GFR (MDRD) Af Amer 90 Est GFR (MDRD) Non-Af 75 BUN/Creatinine Ratio 25.2 H Glucose 101 Calcium 8.8 Urine Color Yellow Urine Clarity Sl. Cloudy Urine pH 5.0 Ur Specific [place] 1.020 Urine Protein 30 H Urine Glucose (UA) 50 H Urine Ketones Negative Urine Occult Blood 150 H Urine Nitrite Negative Urine Bilirubin Negative Urine Urobilinogen Normal Ur Leukocyte Esterase 100 H Urine RBC 10-25 SEEN Urine WBC 10-25 SEEN Ur Squamous Epith Cells 0-5 SEEN Amorphous Sediment 1+ Urine Bacteria RARE Urine Mucus 0 SEEN Urine Opiates Screen Urine Methadone Screen Ur Barbiturates Screen Ur Phencyclidine Scrn Ur Amphetamines Screen MDMA (Ecstasy) Screen U Benzodiazepines Scrn Urine Cocaine Screen U Cannabinoids Screen Ur Drug Screen Comment Ethyl Alcohol 12/31/22 12/31/22 16:13 17:10 WBC RBC Hgb Hct MCV MCH MCHC RDW Std Deviation RDW Coeff of Evangelist Plt Count MPV Immature Gran % (Auto) Neut % (Auto) Lymph % (Auto) [place] % (Auto) Eos % (Auto) Baso % (Auto) Absolute Neuts (auto) Absolute Lymphs (auto) Nucleated RBC % Sodium Potassium Chloride Carbon Dioxide Anion Gap BUN Creatinine Estim Creat Clear Calc Est GFR (MDRD) Af Amer Est GFR (MDRD) Non-Af BUN/Creatinine Ratio Glucose Calcium Urine Color Urine Clarity Urine pH Ur Specific [place] Urine Protein Urine Glucose (UA) Urine Ketones Urine Occult Blood Urine Nitrite Urine Bilirubin Urine Urobilinogen Ur Leukocyte Esterase Urine RBC Urine WBC Ur Squamous Epith Cells Amorphous Sediment Urine Bacteria Urine Mucus Urine Opiates Screen NEGATIVE Urine Methadone Screen NEGATIVE Ur Barbiturates Screen NEGATIVE Ur Phencyclidine Scrn NEGATIVE Ur Amphetamines Screen NEGATIVE MDMA (Ecstasy) Screen NEGATIVE U Benzodiazepines Scrn NEGATIVE Urine Cocaine Screen NEGATIVE U Cannabinoids Screen NEGATIVE Ur Drug Screen Comment Ethyl Alcohol < 3.0 Radiography Diagnostic Testing: Clinical Impression(s) from Imaging Studies Brain CT 12/31/22 15:22 IMPRESSION: Chronic involutional changes of the brain. No change. No acute abnormality. Electronically Signed: Eugene Cottrell MD at 16:26 EDT , Chest X-Ray 12/31/22 15:45 IMPRESSION: No definite acute or significant abnormality seen. Electronically Signed: Eugene Cottrell MD at 16:28 EDT , Discharge Plan Triage Chief Complaint: Mental Status Change ED Provider: Bob Curran Dx/Rx/DC Orders Instructions: ED CAREGIVER SUPPORT for DEMENTIA Primary Care Provider: Ander Buchanan Referrals: Ander Buchanan MD [Primary Care Provider] - Disposition Disposition: Home, Self Care
--- NOTE | 2022-12-31 15:45 | RAD_ITS ---
STUDY: X-RAY CHEST REASON FOR EXAM: Male, 77 years old. ams TECHNIQUE: Single AP portable view of the chest. COMPARISON: None. FINDINGS: The lungs are clear and expanded. There is no demonstrated pleural abnormality. Normal size heart. Normal mediastinum and rik. Normal visualized pulmonary arteries. Normal visualized aortic arch and descending thoracic aorta. There are diffuse degenerative changes of the visualized thoracic spine. There is degenerative osteoarthritis of the bilateral shoulders. There is no demonstrated abnormality of the visualized soft tissue structures of the upper abdomen. RAD/Chest 1 View (Portable) IMPRESSION: No definite acute or significant abnormality seen. Electronically Signed: Eugene Cottrell MD at 16:28 EDT ,
[2022-12-31 16:21] LABS: Absolute Lymphocyte Count 1.52 X10^3/uL (0.83-4.51); Absolute Neutrophil Count 5.9 X10^3/uL (2.0-7.7); Basophil# 0.11 X10^3/uL; Basophil% 1.2 % (0-1); Eosinophil# 0.41 X10^3/uL; Eosinophils% 4.6 % (0-5); Hematocrit 47.9 % (40-54); Hemoglobin 15.3 g/dL (13.0-16.5); Lymphocyte # 1.52 X10^3/ul (0.83-4.51); Lymphocyte % 17.2 % (19-41); Mean Corp Hgb Conc 31.9 g/dL (32-36); Mean Corpuscular Hgb 29.8 pg (27.0-32.0); Mean Corpuscular Volume 93.4 fL (80-94); Mean Platelet Vol. 10.3 fl (6.2-12.0); Monocyte% 10.2 % (0-10); NRBC Flagged by Analyzer 0 % (0-5); Neutrophil # 5.89 X10^3/uL (2.7-7.7); Neutrophil % 66.5 % (47-70); Platelet Count 302 K/mm3 (150-450); RBC Distribution Width CV 13.2 % (11.6-14.6); RBC Distribution Width SD 45.8 fl (35.1-43.9); Red Blood Count 5.13 M/mm3 (4.6-6.2); White Blood Count 8.9 K/mm3 (4.4-11.0)
[2022-12-31 16:35] LABS: Anion Gap 6 (5-15); BUN 26 mg/dL (7-18); BUN/Creat Ratio 25.2 RATIO (10-20); Calcium,Total 8.8 mg/dL (8.5-10.1); Chloride 106 mmol/L (98-107); Creatinine, Serum 1.03 mg/dL (0.70-1.30); EST Glomerular Filtration Rate 75 mL/min (>60); Est Glom Filt Rate - Afr Amer 90 mL/min (>60); Estimated Creatinine Clearance 43.15 ml/min; Glucose 101 mg/dL (74-106); Potassium 4.8 mmol/L (3.5-5.1); Sodium Level 141 mmol/L (136-145)
[2022-12-31 16:54] VITALS: BP 111/76; PULSE 84; RESP 16; O2SAT 95
[2022-12-31 17:01] LABS: Alcohol, Blood (Medical)-Serum < 3.0 mg/dL
[2022-12-31 17:37] LABS: Amphetamine Urine VISTA NEGATIVE (<1000 ng/mL); Barbiturate Urine VISTA NEGATIVE (< 200 ng/mL); Benzodiazepine Urine VISTA NEGATIVE (< 200 ng/mL); Cocaine Urine VISTA NEGATIVE (< 300 ng/mL); Ecstacy Urine VISTA NEGATIVE (< 500 ng/mL); Methadone Urine VISTA NEGATIVE (< 300 ng/mL); PCP Urine VISTA NEGATIVE (< 25 ng/mL); THC Urine VISTA NEGATIVE (< 50 ng/mL); Vista UDS pH Range 6
--- NOTE | 2022-12-31 17:38 | NURSING ---
THIS INSTALLER TECHNICIAN CALLED AND FAXED CRISIS @[id number].
[2022-12-31 17:56] LABS: Mucous, Urine 0 SEEN /hpf (<or=2+)
[2022-12-31 17:57] LABS: Color, Urine Yellow (Yellow); Glucose, Dipstick 50 mg/dl (Normal); Ketone-Dipstick Negative (Negative); Leukocyte Esterase-Dipstick 100 /ul (Negative); Nitrite-Dipstick Negative (Negative); Occult Blood-Urine 150 /ul (Negative); Protein-Dipstick 30 mg/dl (Negative); Urine Bilirubin Dipstick Negative (Negative); Urine Clarity Sl. Cloudy (Clear); Urine Urobilinogen Normal (Normal)
[2022-12-31 18:00] VITALS: BP 118/74; PULSE 80; RESP 18; O2SAT 96
--- NOTE | 2022-12-31 18:01 | EKG12_ITS ---
Test Reason : DYSRHYTHMIA Blood Pressure : / mmHG Vent. Rate : 088 BPM Atrial Rate : 088 BPM P-R Int : 160 ms QRS Dur : 140 ms QT Int : 402 ms P-R-T Axes : 044 -34 -16 degrees QTc Int : 486 ms Sinus rhythm with Premature supraventricular complexes Left axis deviation Right bundle branch block Abnormal ECG Confirmed by NILS CLEMENS, TONYA ([id number]), editorial director DAVID DURAN ([id number]) on 01/01/2023 10:20:49 AM Referred By: LEXI Confirmed By:TONYA WRAY MD
[2022-12-31 18:12] LABS: Red Blood Cells-Urine 10-25 SEEN /hpf (0-5); Squamous Epithelial Cells - UA 0-5 SEEN /hpf (0-5); White Blood Cells 10-25 SEEN /hpf (0-5)
[2022-12-31 18:13] LABS: Amorphous Sediment 1+; Bacteria RARE /hpf (None Seen)
[2022-12-31 20:13] VITALS: BP 130/89; PULSE 75; RESP 16; O2SAT 97
--- NOTE | 2023-01-01 02:17 | ED.RN ---
the care home called at this time to clarify lab results and discharge instructions. care home staff asking if patient was being treated for UTI. advised staff that patient was not dx with uti at this time per our medical doctor. care home staff advised he has a raging uti and should of been treated. advised that Dr. Curran had not dx patient was with uti so no treatment was given. at this time phone call was directed towards charge nurse due to nurse unhappy with answerers given at this time. Charge nurse spoke with nursing staff at this time and staff still unhappy with answers and treatment options. Advised they could call in and speak to the medical scribe in the morning if they have concerns for patient care.
== END 2022-12-31 20:28 | disposition home or self-care (01) ==
PROVIDERS: Emergency Provider Student in an Organized Health Care Education/Training Program; PCP Family Medicine; Visit Provider Student in an Organized Health Care Education/Training Program
DX: R45.1 Restlessness and agitation (principal); F03.90 Unspecified dementia, unspecified severity, without behavioral disturbance, psychotic disturbance, mood disturbance, and anxiety; Z87.891 Personal history of nicotine dependence
CPT/HCPCS: 70450; 71045; 80048; 80307; 81001; 82077; 85025; 93005; 99285

== ENCOUNTER 2023-01-01 09:23 | Emergency (ER) | payer MEDICARE, SELFPAY ==
[2023-01-01] VITALS (7 sets, daily range): BP systolic 128–146; BP diastolic 78–96; PULSE 96–115; RESP 16–18; TEMP 36.6; O2SAT 93–97; BMI 21.3
--- NOTE | 2023-01-01 09:56 | EKG12_ITS ---
Test Reason : CONFUSION Blood Pressure : / mmHG Vent. Rate : 092 BPM Atrial Rate : 092 BPM P-R Int : 168 ms QRS Dur : 134 ms QT Int : 400 ms P-R-T Axes : 035 -33 -07 degrees QTc Int : 494 ms Normal sinus rhythm Left axis deviation Right bundle branch block Inferior infarct , age undetermined Abnormal ECG Confirmed by NILS CLEMENS, TONYA ([id number]), desk editor DAVID DURAN ([id number]) on 01/03/2023 2:08:43 PM Referred By: Confirmed By:TONYA WRAY MD
--- NOTE | 2023-01-01 10:22 | EDS_ITS ---
HPI History of Present Illness Chief Complaint: Mental Status Change Informant: patient and family (daughter) Narrative Narrative: Patient is a 77-year-old male who is presenting to the ER with chief complaint of reevaluation for agitation, combativeness, and potential [facility] placement. Please refer to the ER note from yesterday, very extensive HPI and MDM was done yesterday as well. Patient was sent back to the [facility] last evening. Patient continued to have agitation, combativeness and that continued when patient arrived to the ER for 15 to 20 minutes before patient finally calmed down. Dr. Curran saw and evaluated patient yesterday and had multiple conversations with daughter as well. Patient was cleared by crisis to go back to the nursing facility. Patient has failed outpatient treatment in the nursing facility, and was sent back to the ER for reevaluation and probable [facility] placement. Patient has been placed in [facility] in the past, it does not appear that any medications were started at that time. Patient has no injury to himself. Patient has no recent falls. No signs of head injury. Patient is nonverbal through most of my HPI, patient did say suck my ass as I was leaving the patient's room after performing physical exam. Patient is coming and returning from the [facility] from yesterday [facility] Medical History Dementia GERD (gastroesophageal reflux disease) Low back pain Osteoarthritis Allergy/AdvReac Type Severity Reaction Status Date / Time No Known Allergies Allergy Verified 01/01/23 09:29 Social History household members: none housing: intermediate Smoking Status: Former smoker ROS ROS ED ROS Narrative Review of systems limited secondary to patient's cooperation, no family at bedside initially EXAM Physical Exam Narrative Exam Narrative: Vital signs reviewed and patient is not hypoxic. General: The patient appears mild to moderate distress initially secondary to agitation, combativeness, swinging and attempting to hitting EMS, nursing staff and paramedics and patient arrived to the ER. This lasted for approximately 15 to 20 minutes, the patient calmed down and later was resting comfortably. Not toxic, lethargic, or listless. Skin: Warm, dry, no pallor noted. There is no rash noted. No signs of injury. Head: Normocephalic, atraumatic Eye: Normal conjunctiva, no drainage, EOMI. PERRL. Ears, Nose, Mouth, and Throat: oral mucosa is dry. Nares patent. Poor dentiti on, no signs of acute gingivitis, ANUG, or periapical abscess. Cardiovascular: Regular Rate and Rhythm, no murmurs, gallops, or rubs Respiratory: Patient is in no distress, no accessory muscle use, lungs are clear to auscultation, no wheezing, rales or rhonchi Back: non-tender, no CVA tenderness bilaterally to percussion. NO CTLS midline or paraspinal tenderness to palpation. GI: Soft, no tenderness to palpation, no masses appreciated. No rebound, guarding, or rigidity noted. Patient is an adult diaper. Musculoskeletal: The patient has full range of motion of all extremities and joints with no difficulty. Patient has no motor, no sensory deficits. Neurological: A&O x1, patient will not answer questions concerning name, place or time, he will respond to his name, normal speech when he is going out and agitation, no focal neurological deficits. Psychiatric: Cooperative, does answer no when asking if he is seeing or hearing things Const Vital Signs: 01/01/23 09:25 01/01/23 10:07 01/01/23 12:15 Temperature 97.8 F Temperature Source Temporal Pulse Rate 96 Respiratory Rate 16 16 Blood Pressure 146/96 H Blood Pressure Mean 112 Pulse Ox 97 Oxygen Delivery Method Room Air Room Air 01/01/23 13:19 01/01/23 14:26 01/01/23 15:08 Temperature Temperature Source Pulse Rate Respiratory Rate 17 17 18 Blood Pressure Blood Pressure Mean Pulse Ox Oxygen Delivery Method Room Air Room Air Room Air 01/01/23 16:04 01/01/23 16:04 Temperature 97.9 F Temperature Source Pulse Rate 115 H 115 H Respiratory Rate 17 17 Blood Pressure 128/78 H 128/78 H Blood Pressure Mean 94 94 Pulse Ox 93 93 Oxygen Delivery Method Room Air MDM MDM MDM Narrative Medical decision making narrative: 1005 [employer] socially responsible investment adviser/case management specialist has evaluated the patient, will be calling and speaking to the daughter, and will be working on [facility] placement since patient has failed outpatient therapy from yesterday's attempt to go back to the [facility] History & Record Review Discussion w/independent historian: Family (Inez has spoken to the daughter.) Lab Data Attestation: I reviewed the patient's lab results. Labs: Laboratory Results - last 24 hr 01/01/23 01/01/23 01/01/23 11:10 11:10 11:10 WBC 9.1 RBC 5.27 Hgb 15.5 Hct 49.2 MCV 93.4 MCH 29.4 MCHC 31.5 L RDW Std Deviation 45.7 H RDW Coeff of Evangelist 13.3 Plt Count 322 MPV 10.7 Immature Gran % (Auto) 0.600 Neut % (Auto) 66.7 Lymph % (Auto) 17.6 L [place] % (Auto) 9.5 Eos % (Auto) 4.2 Baso % (Auto) 1.4 H Absolute Neuts (auto) 6.0 Absolute Lymphs (auto) 1.59 Nucleated RBC % 0 Sodium 141 Potassium 4.0 Chloride 108 H Carbon Dioxide 26.0 Anion Gap 7 BUN 21 H Creatinine 0.77 Estim Creat Clear Calc 53.33 Est GFR (MDRD) Af Amer 126 Est GFR (MDRD) Non-Af 104 BUN/Creatinine Ratio 27.2 H Glucose 94 Calcium 8.9 Total Bilirubin 0.40 AST 13 L ALT 18 Alkaline Phosphatase 199 H Total Creatine Kinase 47 Total Protein 6.6 Albumin 2.9 L Globulin 3.7 Albumin/Globulin Ratio 0.8 L Urine Opiates Screen Urine Methadone Screen Ur Barbiturates Screen Ur Phencyclidine Scrn Ur Amphetamines Screen MDMA (Ecstasy) Screen U Benzodiazepines Scrn Urine Cocaine Screen U Cannabinoids Screen Ur Drug Screen Comment Ethyl Alcohol 6.0 01/01/23 11:10 WBC RBC Hgb Hct MCV MCH MCHC RDW Std Deviation RDW Coeff of Evangelist Plt Count MPV Immature Gran % (Auto) Neut % (Auto) Lymph % (Auto) [place] % (Auto) Eos % (Auto) Baso % (Auto) Absolute Neuts (auto) Absolute Lymphs (auto) Nucleated RBC % Sodium Potassium Chloride Carbon Dioxide Anion Gap BUN Creatinine Estim Creat Clear Calc Est GFR (MDRD) Af Amer Est GFR (MDRD) Non-Af BUN/Creatinine Ratio Glucose Calcium Total Bilirubin AST ALT Alkaline Phosphatase Total Creatine Kinase Total Protein Albumin Globulin Albumin/Globulin Ratio Urine Opiates Screen NEGATIVE Urine Methadone Screen NEGATIVE Ur Barbiturates Screen NEGATIVE Ur Phencyclidine Scrn NEGATIVE Ur Amphetamines Screen NEGATIVE MDMA (Ecstasy) Screen NEGATIVE U Benzodiazepines Scrn NEGATIVE Urine Cocaine Screen NEGATIVE U Cannabinoids Screen NEGATIVE Ur Drug Screen Comment Ethyl Alcohol EKG Initial EKG: Attestation: I personally reviewed and interpreted this EKG as follows: (EKG interpretation. Normal sinus rhythm at 92 beats a minute. Left axis deviation. No acute ST elevation, no acute ectopy. Right bundle branch block noted, QTc of 494, slightly elevated) Treatment and Re-Evaluation :: Please see [employer] socially responsible investment adviser/case management specialist notes. She has been extremely helpful in helping places patient. She spoken to the daughter multiple times as well. Patient is going to be placed to [facility] for [facility]. After patient was very agitated combative and having outbursts when he initially arrived, patient was very peaceful for several hours. At approximately 1345 patient started becoming more agitated and combative again. No IV was established, patient was given IM Benadryl, Haldol, and Ativan. This did help control the patient for his safety and staff safety. Patient is being accepted at [facility] to Dr. Elzbieta MD Critical Care Time Critical care time (excluding procedures): 30-74 minutes (Critical care time 33 minutes exclusive from separate billable procedures that were performed. The following was considered in the determination of critical care but not limited to the level of medical decision making, intensive cardiac and/or respiratory monitoring, frequent vital sign monitoring, ) Discharge Plan Triage Chief Complaint: Mental Status Change ED Provider: Dante Johnson Dx/Rx/DC Orders Clinical Impression: Agitation, Combative behavior, Dehydration, mild Primary Care Provider: Ander Buchanan Referrals: Ander Buchanan MD [Primary Care Provider] - Activity Restrictions/Additional Instructions: [facility] Disposition Disposition: Acute Care Hospital Discharge Location: [facility]
[2023-01-01 11:35] LABS: Absolute Lymphocyte Count 1.59 X10^3/uL (0.83-4.51); Basophil# 0.13 X10^3/uL; Basophil% 1.4 % (0-1); Eosinophil# 0.38 X10^3/uL; Eosinophils% 4.2 % (0-5); Hematocrit 49.2 % (40-54); Hemoglobin 15.5 g/dL (13.0-16.5); Lymphocyte # 1.59 X10^3/ul (0.83-4.51); Lymphocyte % 17.6 % (19-41); Mean Corp Hgb Conc 31.5 g/dL (32-36); Mean Corpuscular Hgb 29.4 pg (27.0-32.0); Mean Corpuscular Volume 93.4 fL (80-94); Mean Platelet Vol. 10.7 fl (6.2-12.0); Monocyte# 0.86 X10^3/uL; Monocyte% 9.5 % (0-10); NRBC Flagged by Analyzer 0 % (0-5); Neutrophil # 6.04 X10^3/uL (2.7-7.7); Neutrophil % 66.7 % (47-70); Platelet Count 322 K/mm3 (150-450); RBC Distribution Width CV 13.3 % (11.6-14.6); RBC Distribution Width SD 45.7 fl (35.1-43.9); Red Blood Count 5.27 M/mm3 (4.6-6.2); White Blood Count 9.1 K/mm3 (4.4-11.0)
[2023-01-01 11:50] LABS: Amphetamine Urine VISTA NEGATIVE (<1000 ng/mL); Barbiturate Urine VISTA NEGATIVE (< 200 ng/mL); Benzodiazepine Urine VISTA NEGATIVE (< 200 ng/mL); Cocaine Urine VISTA NEGATIVE (< 300 ng/mL); Ecstacy Urine VISTA NEGATIVE (< 500 ng/mL); Methadone Urine VISTA NEGATIVE (< 300 ng/mL); PCP Urine VISTA NEGATIVE (< 25 ng/mL); THC Urine VISTA NEGATIVE (< 50 ng/mL); Vista UDS pH Range 6
[2023-01-01 11:58] LABS: ALB/GLOB Ratio 0.8 RATIO (0.9-2.4); AST(SGOT) 13 U/L (15-37); Alanine Aminotransfer ALT/SGPT 18 U/L (16-61); Albumin, Serum 2.9 g/dL (3.2-5.0); Alkaline Phosphatase 199 U/L (45-117); Anion Gap 7 (5-15); BUN 21 mg/dL (7-18); BUN/Creat Ratio 27.2 RATIO (10-20); CPK Total, Creatine Kinase 47 U/L (39-308); Calcium,Total 8.9 mg/dL (8.5-10.1); Chloride 108 mmol/L (98-107); Creatinine, Serum 0.77 mg/dL (0.70-1.30); EST Glomerular Filtration Rate 104 mL/min (>60); Est Glom Filt Rate - Afr Amer 126 mL/min (>60); Estimated Creatinine Clearance 53.33 ml/min; Globulin 3.7 g/dL (2.2-4.2); Glucose 94 mg/dL (74-106); Protein, Total 6.6 g/dL (6.4-8.2); Sodium Level 141 mmol/L (136-145)
--- NOTE | 2023-01-01 12:47 | CM.ED ---
Social Work Psychiatric Assessment Reason for Consult: mental health Informants: Patient?s daughter Lay Chief Complaint: Patient was brought in from [facility] due to being combative towards staff for a few days. Patient recently discharged from [facility]. Demographics: Patient is a single, 76 year old male currently residing at [facility]. Patient?s daughter reports the patient has lived with her for 20 years. Patient recently had two surgeries at [facility] and patient?s daughter reports he hasn?t been himself since. Patient went to a [place] SNF after d/c from [place] until his insurance ran out. Patient lived with his daughter again, then went to [facility] for medical needs and was placed in [facility] from there. Patient's daughter reports the patient has been sleeping in a recliner in the dining area at [facility] and does not feel the staff can meet the patient's needs. Patient's daughter spoke with VENECIA at [facility] who is sending referrals to SNFs in [place]. Mental Health Treatment/ History: Patient daughter reports no known mental health diagnosis but has dementia. Patient?s daughter reports the patient is more forgetful at night, not combative. Patient is currently prescribed Seroquel. Patient's daughter reports [facility] staff were going to start a medication for PTSD and depression, however, [facility] staff report no med changes on only prescription is Seroquel. Supports/ Resources: Patient is supported by his daughter, Lay. ?? Triggers/ stressors: Patient has had several moves and hospital stays recently. ? Legal Issues: None reported Coping Skills: unable to gather this information Abuse History: ? Unable to gather this information Risk to Self/Others: ? Suicidal: unable to gather? Homicidal: unable to gather, however, patient is being combative towards staff at [facility] and ED staff when first arrived. ? Violence: Patient was violent towards staff at [facility] and ED staff when first arrived. ? Mental Status Exam: ? Orientation: SW attempted to ask orienting questions, patient would not respond. ? Memory: impaired, dementia diagnosis ? Appearance:? Patient lying in hospital bed, looking aware from and does not engage in conversation. ? Mood/ affect: flat affect, avoiding eye contact ? Communication Pattern: Patient did not engage in conversation well with V[facility]EC[facility]. RN reports patient was talking with his daughter with no issues. ? Thought Process: unable to evaluate ? General Intellectual Functioning: unable to evaluate Judgement: impaired Insight: impaired? Assessment: VENECIA met with MD Johnson, reviewed symptoms and current concerns. reports patient was evaluated yesterday by Crisis and discharged, however, behaviors have continued. MD recommending nakul psych. VENECIA met with patient and introduced herself and role as [facility] Information Systems Security Specialist. Patient lying in hospital bed, looking away from social worker aide and did not engage in conversation. VENECIA contacted patient?s daughter and introduced herself and role as [facility]. Patient?s daughter reviewed recent events, explaining the patient went to [facility] in [place], from December 19-. [facility] reported no concerns and felt dementia was causing the behavioral issues, however, there were no medication adjustments. Patient's daughter disclosed concerns regarding care by [facility], explaining the patient is put in a reclining chair in the dining room all day and night. Patient's daughter already contacted [facility] to send patient to another SNF closer to patient's daughter in [place]. VENECIA reviewed recommendation from for n[facility] psych. Patient's daughter also debating bringing patient home until another SNF is found, VENECIA provided emotional support. VENECIA contacted [facility] at [facility], Tasneem, to review care and referrals for patient. Tasneem reports she has sent several referrals to SNFs in [place], however, once patient is accepted precert will need to be obtained from patient's insurance. Tasneem verified patient's current medication and reports if patient is discharged from [facility], their psychiatrist would likely recommend nakul psych as they are concerned patient was not started on dementia medications at [facility]. VENECIA contacted patient's daughter and reviewed conversation with VENECIA at [facility]. Patient's daughter voiced understanding and was in agreement to nakul psych placement while [facility] works on another SNF location as medication adjustment is needed. Patient's daughter requesting the location be close to [place] so she is able to assist patient. VENECIA updated MD and care team patient's daughter in agreement to pursue nakul psych. Plan:nakul psych placement Inez URENA, JOSE GUADALUPE
--- NOTE | 2023-01-01 13:23 | CM.ED ---
Addendum entered by Inez West 01/01/23 16:39: SW accepted to [facility] with MD Ruff, room TBD, N2N [id number]. [facility] requesting ETA be given during N2N. SW updated care team regarding acceptance. Transportation ETA 30 mins. SW met with patient's daughter at bed side and provided update regarding acceptance and transportation ETA. Patient's daughter tearful in regards to patient's current mental state but voices understanding. SW provided emotional support. Patient's daughter provided copies of HCPOA and Durable POA pw, SW placed in patient's chart. No further needs voiced at this time. SW contacted [facility], VENECIA Boateng, to update on patient's placement. Plan: [facility] for nakul psych JOSE GUADALUPE Luong Original Note: Social Work SW contacted patient's daughter to inquire about ADs. Patient's daughter will be off work at 2:45pm and will be coming to ED. Patient's daughter is HCPOA and will bring in documents if she can locate them. VENECIA contacted [facility] and completed verbal referral. VENECIA faxed referral to [facility]. Plan: nakul psych, referral pending at [facility] JOSE GUADALUPE Luong
[2023-01-01] MEDS: Haloperidol Lactate 5 MG/ML Vial 2 MG IM (14:19)
[2023-01-01] MEDS: LORazepam 2 MG/ML Syringe IM (14:22)
[2023-01-01] MEDS: DiphenhydrAMINE 50 MG/ML Syringe 25 MG IM (14:23)
--- NOTE | 2023-01-01 15:08 | ED.RN ---
AT 1410 PT BECAME AGITATED WHEN GETTING BACK INTO BED AFTER USING BEDSIDE COMMODE. PT STARTED HITTING AND ATTEMPTING TO GRAB STAFF AND THIS RN. PT SCREAMED FUCK YOU YOU ASSHOLE REPEATEDLY. THIS RN AND Ced MCADAMS RN ATTEMPTED TO VERBALLY DEESCALATE PT. PT WAS ASKED IF HE WAS HUNGRY OR NEEDED SOMETHING LIKE A DRINK OR A BLANKET. HE RESPONDED NO YOU ASS. PT CONTINUED TO YELL AT STAFF AND CONTINUED TO ATTEMPT TO HIT STAFF. DR. SOTELO NOTIFIED AND TOLD THAT PT DOES NOT HAVE AN IV. DR. SOTELO VERBAL ORDER TO GIVE HALDOL, ATIVAN, AND BENADRYL SAME DOSE IM. MEDICATIONS GIVEN BY Juan MERCADO RN. AND Ced MCADAMS RN. PT CHANGED INTO GOWN. PT THEN BECAME LESS AGITATED AT 1430 AND WAS GIVEN A SANDWICH AND GATORADE. OF 151 PT FAMILY MEMBER AT BEDSIDE, PT LAYING IN BED RESPIRATIONS EVEN, NONLABORED.
== END 2023-01-01 16:45 | disposition short-term general hospital (02) ==
PROVIDERS: Emergency Provider Emergency Medicine; PCP Family Medicine; Visit Provider Emergency Medicine
DX: R45.1 Restlessness and agitation (principal); E86.0 Dehydration; R41.82 Altered mental status, unspecified; Z87.891 Personal history of nicotine dependence; R46.89 Other symptoms and signs involving appearance and behavior
CPT/HCPCS: 80053; 80307; 82077; 82550; 85025; 87811; 93005; 96372; 99285; J3486